=== PATIENT | female | born 1955 | race Caucasian/White ===

== ENCOUNTER 2023-04-24 07:01 | Day surgery (SDC) | payer MEDICARE, SELFPAY ==
[2023-04-24] VITALS (11 sets, daily range): BP systolic 126–186; BP diastolic 65–87; BMI 42.5
[2023-04-24] MEDS: TYLENOL 1000 MG PO (09:06)
[2023-04-24] MEDS: NORMOSOL-R 1000 IV (09:19)
--- NOTE | 2023-04-24 09:23 | W.SUR.PREOP ---
Pre-Operative Surgical Note
-
I have examined this patient prior to the performance of the scheduled procedure.
The patient's condition is unchanged from the time of the current History and
Physical and the patient is able to undergo the scheduled procedure.
--- NOTE | 2023-04-24 11:55 | W.IMMPOSTOP ---
Addendum entered and electronically signed by Scott Andrade MD 04/24/23 12:31:
#[id number]
Original Note:
Surgical Immed Post Op Note
-
Primary Surgeon: Lupe
Assisting Surgeon: None
Pre-op Diagnosis: CCC
Post-op Diagnosis: CCC
Procedure Performed: Lap Sandy
Anesthesia Type: GETA + 0.25% Marcaine
Specimen / Cultures: GB
Estimated Blood Loss: 16mL
Complications: none immediate
Operative Findings: Hydropic and tensely distended GB. Cyst needle decompression. Large gallstone ~3cm impacted in mid body of GB. GB infundibulum folded onto and intimately adjacent to common bile duct and hepatic artery. Tedious dissection to
identify and isolate cystic duct/artery which were controlled with clips. No spillage of bile or stones but small entry into GB with removal. GB removed at epigastric port site.
[2023-04-24] MEDS: SUBLIMAZE 25 MCG IV (12:30)
[2023-04-24] MEDS: ZOFRAN 4 MG IV (13:14)
== END 2023-04-24 14:52 | disposition home or self-care (01) ==
LOC: SDS 07:01
PROVIDERS: ATTENDING PHYSICIAN Surgery
DX: K80.12 Calculus of gallbladder with acute and chronic cholecystitis without obstruction (principal)
CPT/HCPCS: 47562; 88304

== ENCOUNTER → 2023-06-29 06:25 | Day surgery (SDC) | payer MEDICARE, SELFPAY | LOC: GI 06:25 | PROVIDERS: ATTENDING PHYSICIAN Internal Medicine | DX: Z12.11 Encounter for screening for malignant neoplasm of colon (principal); K63.5 Polyp of colon; K57.30 Diverticulosis of large intestine without perforation or abscess without bleeding; K21.00 Gastro-esophageal reflux disease with esophagitis, without bleeding; K22.89 Other specified disease of esophagus; K44.9 Diaphragmatic hernia without obstruction or gangrene; R10.13 Epigastric pain; K31.7 Polyp of stomach and duodenum; K31.89 Other diseases of stomach and duodenum; Z86.010 Personal history of colon polyps | CPT/HCPCS: 45380; 43239; 88305; 88342 ==

== ENCOUNTER → 2023-07-29 18:09 | Outpatient (REF) | payer MEDICARE, SELFPAY | LOC: WDC 18:09 | PROVIDERS: ATTENDING PHYSICIAN Obstetrics & Gynecology; FAMILY PHYSICIAN Family Medicine | DX: Z12.31 Encounter for screening mammogram for malignant neoplasm of breast (principal) | CPT/HCPCS: 77063; 77067 ==

== ENCOUNTER → 2024-09-26 18:36 | Outpatient (REF) | payer MEDICARE, SELFPAY | LOC: WDC 18:36 | PROVIDERS: ATTENDING PHYSICIAN Family Medicine; REFERRING PHYSICIAN Obstetrics & Gynecology | DX: Z12.31 Encounter for screening mammogram for malignant neoplasm of breast (principal) | CPT/HCPCS: 77063; 77067 ==

== ENCOUNTER → 2025-02-20 10:31 | Outpatient (REF) | payer MEDICARE, SELFPAY | LOC: RAD 10:31 | PROVIDERS: ATTENDING PHYSICIAN Family Medicine | DX: Z78.0 Asymptomatic menopausal state (principal) | CPT/HCPCS: 77080 ==